=== PATIENT | female | born 1955 | race Hispanic/Latino ===

== ENCOUNTER 2017-07-08 15:23 | Outpatient (CLI) | payer MEDICAID ==
--- NOTE | 2017-07-08 16:06 | XRay Report ---
CHEST TWO VIEWS: 07/08/17 15:23:00 CLINICAL: Dyspnea. Chronic asthma. COMPARISON: 04/14/16 FINDINGS: Normal heart. Large central pulmonary arteries and otherwise normal pulmonary vasculature. The lungs are slightly underexpanded and clear. No airspace disease or pleural effusion. Mild degenerative change in the spine. IMPRESSION: No acute cardiopulmonary process.
== END 2017-07-08 15:24 | disposition home or self-care (01) ==
LOC: SPVIMAG 15:23
PROVIDERS: ATTEND Internal Medicine
DX: J44.9 Chronic obstructive pulmonary disease, unspecified (principal)
CPT/HCPCS: 71046